=== PATIENT | female | born 1975 | race Hispanic/Latino ===

== ENCOUNTER 2017-10-15 04:51 | Emergency (ER) | payer OTHER ==
[~2017-10-15] VITALS: Ht 154.9 cm; Wt 123.8 kg
--- OUTSIDE RECORDS SUMMARY | 2017-10-15 04:53 | XMS REPORT | Clinical Summary ---
Author Author [facility] Address Unknown Phone Unavailable Care Team Providers Care Supervisor [facility] Name Role Phone Unknown, Phys PCP Unavailable Allergies Not on File Current Medications Not on file Active Problems Not on file Encounters Date Type Specialty Care Team Description 11/28/2016 Transcribe Physical Therapy Jessica Isidro MD Polyarticular psoriatic Orders arthritis (Primary Dx) after 10/14/2016 Social History Tobacco Use Types Packs/Day Years Used Date Never Assessed Sex Assigned at Date Recorded Not on file Last Filed Vital Signs Not on file Plan of Treatment Health Maintenance Due Date Last Done Comments PAP SMEAR 1997 INFLUENZA VACCINE 03/14/2017 05/22/2008 Results Not on fileafter 10/14/2016 Insurance Payer Benefit Subscriber ID Type Phone Address Plan / Group AETNA AETNA PPO xxxxxxxxxx [place] [address]
[2017-10-15] MEDS ORDERED: SODIUM CHLORIDE 0.9% 1000ML 1,000 ML IV STA (05:20)
[2017-10-15] MEDS ORDERED: PANTOPRAZOLE 40 MG 10ML VIAL IV STA (05:20)
[2017-10-15] MEDS ORDERED: ONDANSETRON HCL INJ 2 MG/ML VIAL IV STA (05:20)
[2017-10-15] MEDS ORDERED: METOPROLOL TART25 MG PO (05:23)
[2017-10-15] MEDS ORDERED: JANUVIA100 MG PO (05:23)
[2017-10-15] MEDS ORDERED: LISINOPRIL2.5 MG PO (05:23)
[2017-10-15 05:45] LABS: BASOPHILS # (AUTO) 0.1 (0.0-0.1); BASOPHILS % 0.8 % (0.0-1.0); BILIRUBIN,URINE NEGATIVE (NEGATIVE); CLARITY,URINE CLEAR (CLEAR); COLOR,URINE YELLOW (YELLOW); EOSINOPHILS # (AUTO) 0.2 (0.0-0.4); EOSINOPHILS % 2.4 % (0.0-6.0); HEMOGLOBIN 9.4 g/dL (12.0-16.0); KETONES,URINE NEGATIVE (NEGATIVE); LEUKOCYTE ESTERASE ,URINE NEGATIVE (NEGATIVE); LYMPHOCYTES # (AUTO) 1.5 (1.0-3.2); LYMPHOCYTES % 22.8 % (18.0-39.1); MEAN CORPUSCULAR HEMOGLOBIN 23.2 pg (28-32); MEAN CORPUSCULAR HGB CONC 30.3 g/dL (31-35); MEAN CORPUSCULAR VOLUME 76.5 fL (81-99); MONOCYTES # (AUTO) 0.4 (0.2-0.8); MONOCYTES % 6.2 % (4.4-11.3); NEUTROPHILS # (AUTO) 4.4 (2.1-6.9); NEUTROPHILS % 66.6 % (38.7-80.0); NITRITE,URINE NEGATIVE (NEGATIVE); PLATELET COUNT 363 x10e3/uL (140-360); PROTEIN,URINE DIPSTICK NEGATIVE (NEGATIVE); RED BLOOD COUNT 4.05 x10e6/uL (3.6-5.1); RED CELL DISTRIBUTION WIDTH 19.9 % (11.7-14.4); URINE UROBILINOGEN 0.2 mg/dL (0.2 - 1)
[2017-10-15 05:51] LABS: WBC,URINE (MAN) 0-5 /HPF (0-5)
[2017-10-15 05:52] LABS: BACTERIA,URINE RARE /HPF; EPITHELIAL CELLS,URINE FEW /LPF; MUCUS,URINE FEW (RARE)
[2017-10-15 05:55] LABS: INR 1.04; PROTHROMBIN TIME 12.8 seconds (11.9-14.5)
[2017-10-15 05:56] LABS: PARTIAL THROMBOPLASTIN TIME 32.9 seconds (23.8-35.5)
[2017-10-15 06:02] LABS: ALANINE AMINOTRANSFERASE 58 IU/L (0-55); ALBUMIN 3.7 g/dL (3.5-5.0); ALBUMIN/GLOBULIN RATIO 0.7 (0.8-2.0); ALKALINE PHOSPHATASE 102 IU/L (40-150); BLOOD UREA NITROGEN 15 mg/dL (7-26); BUN/CREATININE RATIO 20 (6-25); CALCIUM 9.5 mg/dL (8.4-10.2); CARBON DIOXIDE 23 mmol/L (22-29); CHLORIDE 99 mmol/L (98-107); CREATINE KINASE 33 IU/L (29-168); CREATININE, SERUM 0.74 mg/dL (0.57-1.11); EST GLOMERULAR FILTRATION RATE > 60 ML/MIN (60-); GLUCOSE 354 mg/dL (74-118); MAGNESIUM 1.8 MG/DL (1.3-2.1); SODIUM 133 mmol/L (136-145)
--- NOTE | 2017-10-15 07:15 | Diagnostic Imaging Report ---
EXAMINATION: Head CT without contrast. HISTORY:Dizziness. COMPARISON: Report of CT brain from 01/28/2011, images are not available for comparison at the time of interpretation. TECHNIQUE: Multidetector axial images were obtained from the foramen magnum to the vertex without contrast. The images were reconstructed using brain and bone algorithms. Thin section brain images were reformatted into coronal and sagittal planes. Intravenous contrast: None IMAGE QUALITY: Acceptable. FINDINGS: Skull/scalp: No lytic or blastic. lesions. No surgical changes. Parenchyma: No abnormal density. No acute hemorrhage, mass or acute major vascular territorial infarct. Arteries: No density suggestive of thrombosis. Dural sinuses: No abnormal density suggestive of thrombosis. Ventricles: No hydrocephalus or displacement. Extra-axial spaces: No abnormal density. Brain volume: Normal for age. Craniocervical junction: No mass, Chiari malformation, or basilar invagination. Sella: No mass. Paranasal/mastoid sinuses: Under pneumatization and partial sclerosis of bilateral mastoids possibly a sequelae of chronic inflammation process. IMPRESSION: No intracranial abnormality. Signed by: Dr. Agnieszka Olmstead M.D. on 10/15/2017 7:12 AM
--- NOTE | 2017-10-15 07:34 | Diagnostic Imaging Report ---
EXAM: CT Abdomen and Pelvis WITHOUT contrast INDICATION: Right flank pain COMPARISON: None. TECHNIQUE: Abdomen and pelvis were scanned utilizing a multidetector helical scanner from the lung base to the pubic symphysis without administration of IV contrast. Absence of intravenous contrast decreases sensitivity for detection of focal lesions and vascular pathology. Coronal and sagittal reformations were obtained. Routine protocol was performed. IV CONTRAST: None. ORAL CONTRAST: Water RADIATION DOSE: Total DLP: 840.2 mGy*cm Estimated effective dose: (DLP x 0.015 x size factor) mSv COMPLICATIONS: None FINDINGS: LINES and TUBES: None. LOWER THORAX: Unremarkable HEPATOBILIARY: Hepatomegaly. The liver measures 24.5 cm in craniocaudal dimension. Hepatic steatosis. The liver parenchyma measures 37 Hounsfield units. No focal hepatic lesions. No biliary ductal dilation. GALLBLADDER: No radio-opaque stones or sludge. No wall thickening. SPLEEN: Mild splenomegaly. The spleen measures 14.9 cm in length in the craniocaudal dimension. PANCREAS: No focal masses or ductal dilatation. ADRENALS: 2.8 cm fat containing right adrenal gland nodule likely benign adenoma. The left vaginal gland is unremarkable. KIDNEYS/URETERS: No hydronephrosis. No cystic or solid mass lesions. No stones. GI TRACT: No abnormal distention, wall thickening, or evidence of bowel obstruction. Appendix is normal. PELVIC ORGANS/BLADDER: The urinary bladder is well distended and appears unremarkable. The uterus is prominent and extend into the right lower quadrant. No discrete mass is seen in within the uterus. The ovaries are not well visualized but no adnexal masses seen. LYMPH NODES: No lymphadenopathy. VESSELS: The main portal vein appears dilated measuring 1.9 cm. The splenic vessels are prominent. PERITONEUM / RETROPERITONEUM: No free air or fluid. BONES: Unremarkable. SOFT TISSUES: 5.4 cm fat-containing umbilical hernia. No fluid collections or fat stranding within the herniated sac. IMPRESSION: 1. No calcified nephroureterolithiasis. 2. Hepatosplenomegaly. Diffuse hepatic steatosis. 3. Right fat containing adrenal gland nodule (2.7 cm) likely a benign adrenal gland adenoma. This can be follow-up in 6-12 months to demonstrate stability with CT abdomen with and without contrast adrenal mass protocol. 4. Prominent uterus extending into the right lower quadrant without discrete masses. 5. Moderately sized fat-containing umbilical hernia. Signed by: Dr. Joelle Dallas M.D. on 10/15/2017 7:30 AM
--- NOTE | 2017-10-15 07:35 | Diagnostic Imaging Report ---
EXAMINATION: CHEST SINGLE (PORTABLE) INDICATION: \S\DIZZY \[id number] \[id number] COMPARISON: None FINDINGS: AP view TUBES and LINES: None. LUNGS: Lungs are well inflated. Minimal right lower lobe atelectasis. There is no evidence of pneumonia or pulmonary edema. PLEURA: No pleural effusion or pneumothorax. HEART AND MEDIASTINUM: Borderline size of the cardiac silhouette.. BONES AND SOFT TISSUES: No acute osseous lesion. Soft tissues are unremarkable. UPPER ABDOMEN: No free air under the diaphragm. IMPRESSION: No acute thoracic abnormality. Signed by: Dr. Joelle Dallas M.D. on 10/15/2017 7:32 AM
[2017-10-15 08:29] VITALS: BP 120/82
== END 2017-10-15 09:10 | disposition home or self-care (01) ==
LOC: ER 04:51
DX: R42 Dizziness and giddiness (principal); R11.0 Nausea; E86.0 Dehydration
CPT/HCPCS: 36415; 70450; 71045; 74176; 80053; 81001; 81025; 82550; 82553; 83735; 83880; 84484; 85025; 85610; 85730; 93005; 99284; J2405; J7030